=== PATIENT | male | born 1985 | race Caucasian/White ===

== ENCOUNTER 2022-06-29 23:55 | Emergency (ER) | payer SELFPAY ==
[~2022-06-29] VITALS: Ht 172.7 cm; Wt 81.6 kg
[2022-06-29 23:55] VITALS: BP 119/72
--- NOTE | 2022-06-29 23:55 | NUR ---
PT BIB [facility], PREBOOK. TAKEN TO CHAIR C
--- NOTE | 2022-06-30 00:47 | NUR ---
Dr. Callejas examining patient.
[2022-06-30 00:50] VITALS: BP 119/72
--- NOTE | 2022-06-30 00:50 | NUR ---
PATIENT BIB [facility]ICE [facility]PT. PATIENT EXAMINED BY DR. WERNER. PATIENT MEDICALLY CLEARED AND RELEASED IN CUSTODY IN STABLE CONDITION. ORIGINAL PRE-BOOK FORM GIVEN TO OFFICER JERMAINE [id number] Patient discharged with v/s stable. Written and verbal after care instructions given and explained. Patient verbalized understanding. Police with in custody. All questions addressed prior to discharge. Advised to follow up with PMD.
== END 2022-06-30 00:50 ==
LOC: MED 23:55
DX: V49.88XA Car occupant (driver) (passenger) injured in other specified transport accidents, initial encounter; Y93.89 Activity, other specified; Y92.89 Other specified places as the place of occurrence of the external cause; Y99.8 Other external cause status
CPT/HCPCS: 99283